=== PATIENT | female | born 1985 | race Caucasian/White ===

== ENCOUNTER 2017-05-09 10:19 | Emergency (ER) | payer BC ==
[2017-05-09 13:21] VITALS: BP 133/76
--- NOTE | 2017-05-09 13:23 | UC ---
Complaint Female HPI - HPI Summary HPI Summary: 32 y/o female presents to the urgent care requesting STD's screening. Pt reports she has a vaginal discharge that itches for the past week. Pt states she has a new partner and she has had unprotected sex. LMP; 04/29/2017 w/ regular menstrual cycles, Pt denies Hx of STD's , pelvic pain, lower back pain, urinary symptoms, SOB, chest pain, abdominal pain, N/V/D. - History Of Current Complaint Chief Complaint: UCGeneralIllness Stated Complaint: PERSONAL Time Seen by Provider: 05/09/17 13:18 Hx Obtained From: Patient Hx Last Menstrual Period: last week ?: No Onset/Duration: Lasting Weeks - 1 week, Still Present Timing: Constant Severity Initially: Mild Severity Currently: Mild Pain Intensity: 2 Pain Scale Used: 0-10 Numeric Character: Not Applicable Aggravating Factor(s): [place], Urination Alleviating Factor(s): Nothing Associated Signs And Symptoms: Positive: Vaginal Discharge. Negative: Fever, Back Pain, Genital Swelling, Genital Blisters - Risk Factors Ectopic Risk Factor: Negative Ovarian Torsion Risk Factor: Negative, Reproductive Age - Allergies/Home Medications Allergies/Adverse Reactions: Allergies Allergy/AdvReac Type Severity Reaction Status Date / Time No Known Allergies Allergy Verified 05/09/17 13:14 Home Medications: Home Medications Control Pill 1 tab QPM 05/09/17 [History Confirmed 05/09/17] Levothyroxine TAB* [Synthroid 100 MCG TAB*] 100 mcg DAILY 05/09/17 [History Confirmed 05/09/17] PMH/Surg Hx/FS Hx/Imm Hx Previously Healthy: Yes Endocrine History: Hypothyroidism - Surgical History Surgical History: Yes Surgery Procedure, Year, and Place: 3x C-sections - Family History Known Family History: Positive: Diabetes Family History: Hypothyrodism - Social History Occupation: Employed Full-time Lives: With Family Alcohol Use: Occasionally Substance Use Type: None Smoking Status (MU): Never Smoked Tobacco Review of Systems Constitutional: Negative Skin: Negative Eyes: Negative ENT: Negative Respiratory: Negative Cardiovascular: Negative Gastrointestinal: Negative Genitourinary: Vaginal/Penile Itching, Vaginal/Penile Discharge Motor: Negative Neurovascular: Negative Musculoskeletal: Negative Neurological: Negative Psychological: Negative Is Patient Immunocompromised?: No All Other Systems Reviewed And Are Negative: Yes Physical Exam Triage Information Reviewed: Yes Vital Signs: Initial Vital Signs Temp 98.3 F 05/09/17 13:15 Pulse 89 05/09/17 13:15 Resp 16 05/09/17 13:15 BP 133/76 05/09/17 13:15 Pulse Ox 99 05/09/17 13:15 - Additional Comments Vital signs: reviewed General: well developed well nourished female sitting in the examining table w/ o any apparent distress.. Head: Normocephalic, no lesions. Eyes: PERRLA, EOM's full, conjunctiva clear, fundi grossly normal. Ears: EAC's clear, TM's normal. Nose: Mucosa normal, no obstruction. Throat: Clear, no exudates, no lesions. Neck: Supple, no masses, no thyromegaly, no bruits. Chest: Lungs clear, no rales, no rhonchi, no wheezes. Heart: RR, no murmurs, no rubs, no gallops. Abdomen: Soft, no tenderness, no masses, BS normal. : Normal, no lesions, no discharge, no hernias noted. Pelvic: I was assited by Nurse.External genitalia within normal limits. There is no lesions there is no masses noted. Speculum exam: The vaginal verdugo are within normal limits w/ normal white vaginal discharge w/ fishy odor, no the lesions or rashes. The cervix is closed with no lesions or masses. There is no CMT's, and no adnexal masses. Sample sent to Lab for G/C, Trichomonas and affirm panel. Rectal: No lesions, no hemorrhoids, Back: Normal curvature, no tenderness. Extremities: FROM, no deformities, no edema, no erythema. Neuro: Physiological, no localizing findings. Skin: Normal, no rashes, no lesions noted. Complaint Female Dx - Course Course Of Treatment: 32 y/o female presents to the urgent care requesting STD's screening. Pt reports she has a vaginal discharge that itches for the past week. Pt states she has a new partner and she has had unprotected sex. LMP; 04/29 w/ regular menstrual cycles, Pt denies Hx of STD's , pelvic pain, lower back pain, urinary symptoms, SOB, chest pain, abdominal pain, N/V/D.Hx obtained. Pt with Bacterial vaginosis and probably also Candidiasis on pelvic examination. Pt Rx Metronidazole vaginal cream and Fluconazole PO. UA ordered, result:trace blood. test: negative. Pt educated on STD's. Advised to f /u with SKIAGRAPHER for PAP. Specimen were sent to lab to r/o any other STD's.Also HIV, Herpes and RPR ordered on blood, Advised she will be notified if any abnormal result from lab. Pt understood and agreed with plan of care. - Differential Dx/Diagnosis Differential Diagnosis/HQI/PQRI: Cervicitis, Pelvic Inflammatory Disease, , Sexually Transmitted Disease, Urinary Tract Infection Provider Diagnoses: 1-Bacterial vaginosis,. 2-Siri vaginitis. 3-Screeening for STD's Discharge - Discharge Plan Condition: Stable Disposition: HOME Prescriptions: Fluconazole 150 MG (NF) [Diflucan 150 mg (NF)] 150 mg PO ONCE #1 tab metroNIDAZOLE VAGINAL 0.75%* 1 applic VAGINAL BEDTIME #1 deigo Patient Education Materials: Bacterial Vaginosis (ED), Yeast Infection (ED) Referrals: Non Staff,Doctor [Primary Care Provider] - 1 Week Additional Instructions: 1- Please apply and take medications as directed. Avoid sexual intercourse while on the treatment. 2- Specimen were sent to lab, if anything abnormal you will receive a call from us for further treatment. 3-If not improvement of symptoms please return to the urgent care or f/u with your SKIAGRAPHER for further treatment
--- NOTE | 2017-05-11 07:24 | UC ---
- Progress Note Progress Note: + gardnerella - treated with flagyl topical. was treated with diflucan, but [place] was neg. rest of testing negative.
[2017-05-11 14:56] LABS: Herpes Simplex Virus II IgG AB Negative (Negative)
== END 2017-05-09 14:17 | disposition home or self-care (01) ==
LOC: UCCORT 10:19
DX: L29.3 Anogenital pruritus, unspecified (principal); Z32.02 Encounter for pregnancy test, result negative; Z11.4 Encounter for screening for human immunodeficiency virus [HIV]
CPT/HCPCS: 36415; 81003; 84702; 86592; 86695; 86696; 86703; 87480; 87491; 87510; 87591; 87661; 99202; G0463

== ENCOUNTER 2017-08-09 10:43 | Emergency (ER) | payer OTHER, BC ==
[2017-08-09 12:14] VITALS: BP 118/71
--- NOTE | 2017-08-09 12:17 | UC ---
Complaint Female HPI - HPI Summary HPI Summary: 32 yo female presents with vaginal irritation and itching for 3 days. She tried a one day monistat with no improvement. She tells me that she had similar symptoms a few months ago and ended up having BV and yeast. She had an STD workup at that time with negative results. Since that time she has had a new sexual partner. She is most concerned because she very rarely had BV or yeast - now she has had issues 2-3 times in the last few months. She is requesting a full STD check again today. Denies fever, chills, abdominal pain, n/v/d/c, dysuria. No known STD exposure - History Of Current Complaint Chief Complaint: UCGU Stated Complaint: PERSONAL Time Seen by Provider: 08/09/17 12:16 Hx Obtained From: Patient Hx Last Menstrual Period: (irregular for one year since starting BCP) Onset/Duration: Gradual Onset Timing: Constant Severity Initially: Mild Severity Currently: Mild Pain Intensity: 4 Pain Scale Used: 0-10 Numeric - Allergies/Home Medications Allergies/Adverse Reactions: Allergies Allergy/AdvReac Type Severity Reaction Status Date / Time No Known Allergies Allergy Verified 08/09/17 12:10 Home Medications: Home Medications Miconazole Nitrate [Monistat 3 Combination Pa 200-2 mg-% (9Gm)] 1 kit VA ONCE [History Confirmed 08/09/17] Norethindrone AC-Eth Estradiol [Junel 1.5 mg-30 Mcg Tablet] 1 each PO DAILY 02/16 [History Confirmed 08/09/17] PMH/Surg Hx/FS Hx/Imm Hx Previously Healthy: Yes Endocrine History: Thyroid Disease - Surgical History Surgical History: Yes Surgery Procedure, Year, and Place: C-Sections, 2010 2014 2016 - Family History Known Family History: Positive: Diabetes Family History: Hypothyrodism - Social History Occupation: Employed Full-time Lives: With Family Alcohol Use: Rare Substance Use Type: None Smoking Status (MU): Never Smoked Tobacco Review of Systems Constitutional: Negative Skin: Negative Respiratory: Negative Cardiovascular: Negative Gastrointestinal: Negative Genitourinary: Vaginal/Penile Burning, Vaginal/Penile Itching, Vaginal/Penile Discharge Neurovascular: Negative Neurological: Negative Psychological: Negative All Other Systems Reviewed And Are Negative: Yes Physical Exam - Summary Physical Exam Summary: GENERAL: NAD. WDWN. No pain distress. SKIN: No rashes, sores, lesions, or open wounds. NECK: Supple. Nontender. No lymphadenopathy. CHEST: CTAB. No r/r/w. No accessory muscle use. Breathing comfortably and in no distress. CV: RRR. Without m/r/g. Pulses intact. Brisk cap refill. ABDOMEN: Soft. NTTP. No distention or guarding. Bowel sounds present NEURO: Alert. CN II-XII grossly intact. PSYCH: Age appropriate behavior. Triage Information Reviewed: Yes Vital Signs: Initial Vital Signs Temp 98.3 F 08/09/17 12:06 Pulse 66 08/09/17 12:06 Resp 16 08/09/17 12:06 BP 118/71 08/09/17 12:06 Pulse Ox 100 08/09/17 12:06 Pelvic Exam: Positive: No Cerv. Motion Tender, No Masses, Discharge - Thin milkly white. Negative: Active Bleeding, Lesions, Tender w/ Cervical Motion Complaint Female Dx - Course Course Of Treatment: Suspect BV. Will treat with flagyl and call her with results. Cultures obtained for BV, yeast, GC/Chlamydia. Labs taken for HIV, hepatitis, RPR, and herpes at her request. - Differential Dx/Diagnosis Provider Diagnoses: Bacterial Vaginosis Discharge - Sign-Out/Discharge Documenting (check all that apply): Discharge/Admit/Transfer - Discharge Plan Condition: Stable Disposition: HOME Prescriptions: metroNIDAZOLE [Flagyl] 500 mg PO BID #14 tablet Patient Education Materials: Bacterial Vaginosis (ED) Referrals: Non Staff,Doctor [Primary Care Provider] - Additional Instructions: If you develop a fever, shortness of breath, chest pain, new or worsening symptoms - please call your PCP or go to the ED. - Billing Disposition and Condition Condition: STABLE Disposition: HOME
--- NOTE | 2017-08-11 14:37 | ED ---
Progress - Progress Note Progress Note: + Gardnerella Neg [place] Pt on Flagyl no change amandeepj 08/11/2017 Course/Dx - Course Course Of Treatment: Suspect BV. Will treat with flagyl and call her with results. Cultures obtained for BV, yeast, GC/Chlamydia. Labs taken for HIV, hepatitis, RPR, and herpes at her request. Discharge - Sign-Out/Discharge Documenting (check all that apply): Discharge/Admit/Transfer - Discharge Plan Condition: Stable Disposition: HOME Prescriptions: metroNIDAZOLE [Flagyl] 500 mg PO BID #14 tablet Patient Education Materials: Bacterial Vaginosis (ED) Referrals: Non Staff,Doctor [Primary Care Provider] - Additional Instructions: If you develop a fever, shortness of breath, chest pain, new or worsening symptoms - please call your PCP or go to the ED. - Billing Disposition and Condition Condition: STABLE Disposition: HOME
[2017-08-12 14:09] LABS: Herpes Simplex Virus II IgG AB Negative (Negative)
== END 2017-08-09 13:07 | disposition home or self-care (01) ==
LOC: UCCORT 10:43
DX: N76.0 Acute vaginitis (principal); B96.89 Other specified bacterial agents as the cause of diseases classified elsewhere; Z11.4 Encounter for screening for human immunodeficiency virus [HIV]
CPT/HCPCS: 36415; 80074; 86592; 86695; 86696; 86703; 87480; 87491; 87510; 87591; 87661; 99212; G0463

== ENCOUNTER 2017-12-30 08:41 | Emergency (ER) | payer OTHER, BC ==
--- NOTE | 2017-12-30 09:00 | UC ---
Complaint Female HPI - HPI Summary HPI Summary: UTI. onset last pm - History Of Current Complaint Stated Complaint: URINARY Time Seen by Provider: 12/30/17 08:48 Hx Obtained From: Patient Hx Last Menstrual Period: (irregular for one year since starting BCP) Onset/Duration: Gradual Onset Timing: Constant Aggravating Factor(s): Nothing Alleviating Factor(s): Nothing - Allergies/Home Medications Allergies/Adverse Reactions: Allergies Allergy/AdvReac Type Severity Reaction Status Date / Time No Known Allergies Allergy Verified 12/30/17 09:01 PMH/Surg Hx/FS Hx/Imm Hx - Additional Past Medical History Additional PMH: UTI's Endocrine History: Thyroid Disease - Surgical History Surgical History: Yes Surgery Procedure, Year, and Place: C-Sections, 2010 2014 2016 - Family History Known Family History: Positive: Diabetes Family History: Hypothyrodism - Social History Occupation: Employed Full-time Alcohol Use: Rare Substance Use Type: None Smoking Status (MU): Never Smoked Tobacco - Immunization History Vaccination Up to Date: Yes Review of Systems Constitutional: Negative Skin: Negative Eyes: Negative ENT: Negative Respiratory: Negative Cardiovascular: Negative Gastrointestinal: Negative Genitourinary: Dysuria, Frequency, Urgency Motor: Negative Neurovascular: Negative Musculoskeletal: Negative Neurological: Negative Psychological: Negative Is Patient Immunocompromised?: No All Other Systems Reviewed And Are Negative: Yes Physical Exam Triage Information Reviewed: Yes Appearance: Well-Appearing Vital Signs Reviewed: Yes Eyes: Positive: Conjunctiva Clear ENT: Positive: Normal ENT inspection Neck: Positive: Supple, Nontender, No Lymphadenopathy Respiratory: Positive: Lungs clear, Normal breath sounds Cardiovascular: Positive: RRR, No Murmur Abdomen Description: Positive: Nontender, No Organomegaly, Soft Bowel Sounds: Positive: Present Musculoskeletal: Positive: ROM Intact Neurological: Positive: Alert Psychological: Positive: Age Appropriate Behavior Skin Exam: Normal Diagnostics - Laboratory Diagnostic Studies Completed/Ordered: U/A=PROTEIN, BLOOD, LEUKOCYTES WITH CULTURE PENDING Complaint Female Dx - Course Course Of Treatment: NO CONCERN FOR PYELONEPHRITIS - Differential Dx/Diagnosis Differential Diagnosis/HQI/PQRI: Urinary Tract Infection Provider Diagnoses: uti Discharge - Sign-Out/Discharge Documenting (check all that apply): Patient Departure All imaging exams completed and their final reports reviewed: No Studies - Discharge Plan Condition: Stable Disposition: HOME Prescriptions: Nitrofurantoin Monohyd/M-Cryst [Macrobid 100 mg Capsule] 100 mg PO BID 5 Days # 10 cap Phenazopyridine TAB* [Pyridium 100 mg TAB*] 100 mg PO TID 2 Days #6 tab Patient Education Materials: Urinary Tract Infection in Women (DC) Referrals: Angela Sabillon FINANCIAL ACCOUNTANT [Primary Care Provider] - 7 Days - Billing Disposition and Condition Condition: STABLE Disposition: Home
[2017-12-30 09:01] VITALS: BP 125/68
== END 2017-12-30 09:18 | disposition home or self-care (01) ==
LOC: UCCORT 08:41
DX: N39.0 Urinary tract infection, site not specified (principal); B96.20 Unspecified Escherichia coli [E. coli] as the cause of diseases classified elsewhere
CPT/HCPCS: 81003; 87077; 87086; 87186; 99212; G0463